=== PATIENT | male | born 1980 ===

== ENCOUNTER 2017-07-24 08:33 | Emergency (ER) | payer OTHER ==
[2017-07-24 08:40] VITALS: BMI 32.1
[2017-07-24] MEDS ORDERED: Sodium Chloride 0.9% 1,000 ML IV SCH (10:00)
--- NOTE | 2017-07-24 10:00 | ED PDOC ---
HPI: Abdomen Time Seen by Provider: 07/24/17 09:18 Chief Complaint (Nursing): Abdominal Pain Chief Complaint (Provider): "i have suprapubic pain" History Per: Patient, Family History/Exam Limitations: no limitations Onset/Duration Of Symptoms: Days Outside of [place] travel?: Yes Other Location:: [facility] on 07/21/2017 Current Symptoms Are (Timing): Still Present Pain Scale Rating Of: 8 Location Of Pain/Discomfort: Suprapubic Quality Of Discomfort: Sharp Associated Symptoms: Fever, Nausea, Urinary Symptoms Exacerbating Factors: Movement Alleviating Factors: Rest Last Bowel Movement: Today Additional Complaint(s): 36 y/o male, w/o significant medication Hx as per pt presents complaining of suprapubic pain x1 day. Pt reports pain started last night gradually. Pain is located suprapubically, 8/10, constant, nonradiating, alleviated with upright position and exacerbated with movement, straining, and urination. Pain is associated with feeling febrile, nausea, dysuria, and dizziness. Several episodes of diarrhea yesterday. Normal BM today. Decreased PO fluid intake 2/2 to dysuria. No recent change in diet. Recently returned from business trip in [facility]. No sick contacts, 1st episode of such pain. Denies sexual behavior/ partner changes. Denies vomiting, melena, hematochezia, hematuria, pyuria, back pain. Past Medical History Reviewed: Historical Data, Vital Signs Vital Signs: Last Vital Signs Temp 98 F 07/24/17 08:39 Pulse 76 07/24/17 12:03 Resp 16 07/24/17 12:03 BP 109/66 07/24/17 12:03 Pulse Ox 98 07/24/17 14:23 - Medical History PMH: No Chronic Diseases Denies: Chronic Kidney Disease - Family History Family History: States: Unknown Family Hx - Immunization History Hx Tetanus Toxoid Vaccination: No Hx Influenza Vaccination: No Hx Pneumococcal Vaccination: No - Home Medications Home Medications: Ambulatory Orders Medication Instructions Recorded Ciprofloxacin 750 mg PO BID 10 Days ml 07/24/17 Metronidazole [Flagyl] 500 mg PO Q6H 10 Days tablet 07/24/17 - Allergies Allergies/Adverse Reactions: Allergies Allergy/AdvReac Type Severity Reaction Status Date / Time No Known Allergies Allergy Verified 07/24/17 09:50 Review of Systems ROS Statement: Except As Marked, All Systems Reviewed And Found Negative Physical Exam - Reviewed Nursing Documentation Reviewed: Yes Vital Signs Reviewed: Yes - Physical Exam Appears: Positive for: Non-toxic, No Acute Distress Head Exam: Positive for: ATRAUMATIC Skin: Positive for: Normal Color, Warm, Dry Eye Exam: Positive for: EOMI, PERRL. Negative for: Conjunctival injection, Scleral icterus Cardiovascular/Chest: Positive for: Regular Rate, Rhythm. Negative for: Murmur Respiratory: Positive for: Normal Breath Sounds. Negative for: Rales, Rhonchi, Wheezing Pulses-Radial (L): 2+ Pulses-Radial (R): 2+ Gastrointestinal/Abdominal: Positive for: Bowel Sounds (normal ), Soft, Tenderness (suprapubic tenderness ), Guarding (voluntary ). Negative for: Mass , Distended, Rebound Back: Negative for: L CVA Tenderness, R CVA Tenderness Lymphatic: Negative for: Adenopathy Neurologic/Psych: Positive for: Alert, slab stripper II-XII, Oriented. Negative for: Motor/Sensory Deficits - Laboratory Results Result Diagrams: 07/24/17 10:07 07/24/17 10:07 - ECG O2 Sat by Pulse Oximetry: 98 - Progress ED Course And Treament: suspected UTI CBC CMP UA GC/CH 1 L NS 15mg Toradol IV re-evaluate Disposition - Clinical Impression Clinical Impression: Diverticulitis - Patient ED Disposition Is Patient to be Admitted: No - Disposition Referrals: Thomas Lott MD [Staff Provider] - Disposition: Routine/Home Disposition Time: 14:05 Condition: STABLE Additional Instructions: take medications as prescribed increase fiber intake drink lots of fluids follow up with a primary medical doctor in 2-3 days Prescriptions: Ciprofloxacin 750 mg PO BID 10 Days ml Metronidazole [Flagyl] 500 mg PO Q6H 10 Days tablet Instructions: Diverticulitis (DC) Forms: [employer] (Czech)
[2017-07-24 10:12] LABS: HEMOGLOBIN 15.4 g/dL (12.0-18.0); MEAN CELL VOLUME 91.4 fl (80.0-94.0); MEAN CORPUSCULAR HEMOGLOBIN 31.2 pg (27.0-31.0); MEAN CORPUSCULAR HGB CONC 34.1 g/dL (33.0-37.0); RBC 4.94 Mil/uL (4.40-5.90); RED CELL DISTRIBUTION WIDTH 13.2 % (11.5-14.5); WHITE BLOOD COUNT 12.4 K/uL (4.8-10.8)
[2017-07-24 10:33] LABS: ALB/GLOB RATIO 1.3 (1.0-2.1); ALBUMIN 4.3 g/dL (3.5-5.0); ALT/SGPT 48 U/L (21-72); AST/SGOT 21 U/L (17-59); BLOOD UREA NITROGEN 9 mg/dl (9-20); CALCIUM 9.4 mg/dL (8.4-10.2); GFR AFRICAN-AMERICAN > 60; GFR NON-AFRICAN AMERICAN > 60
[2017-07-24 11:44] LABS: SQUAMOUS EPITHIAL < 1 /hpf (0-5); URINE BACTERIA RARE (<OCC); URINE BILIRUBIN NEGATIVE (NEGATIVE); URINE BLOOD NEGATIVE (NEGATIVE); URINE CLARITY SLIGHTY-CLOUDY (Clear); URINE COLOR YELLOW (YELLOW); URINE GLUCOSE (UA) NEG (Normal); URINE LEUKOCYTE ESTERASE NEG Leu/uL (Negative); URINE NITRATE NEGATIVE (NEGATIVE); URINE PROTEIN NEGATIVE (NEGATIVE); URINE UROBILINOGEN 0.2-1.0 mg/dL (0.2-1.0)
[2017-07-24 12:04] VITALS: PULSE 76; RESP 16
[2017-07-24 12:08] VITALS: BP 109/66; TEMP 98
--- NOTE | 2017-07-24 14:01 | CT ---
PROCEDURE: CT Abdomen and Pelvis without intravenous contrast HISTORY: abdominal pain COMPARISON: None. TECHNIQUE: Helical CT of the abdomen and pelvis was performed without oral or intravenous contrast as per referring physician request. Contrast Dose: None Radiation dose: Total exam DLP = 1123.47 mGy-cm. This CT exam was performed using one or more of the following dose reduction techniques: Automated exposure control, adjustment of the mA and/or kV according to patient size, and/or use of iterative reconstruction technique. FINDINGS: LOWER THORAX: Unremarkable. LIVER: Diffuse lucencies suggests relatively prominent diffuse fatty infiltration. Small lucency seen the left lobe anteriorly measuring 1.1 cm and 8 Hounsfield units. Further, there is an additional lucency was well circumscribed in the right lobe near the dome laterally, measuring 3.3 x 2.7 cm with a density measurement of 2 Hounsfield units. Both represent cysts. GALLBLADDER AND BILE DUCTS: Unremarkable. PANCREAS: Unremarkable. No gross lesion or ductal dilatation. SPLEEN: Unremarkable. ADRENALS: Unremarkable. No mass. KIDNEYS AND URETERS: No radiodense urolithiasis, perinephric fluid collection or obstructive uropathy is appreciate bilaterally. The bilateral ureters appear normal caliber overall. VASCULATURE: Unremarkable. No aortic aneurysm. BOWEL: Stomach is only mildly distended with retained fluid and air. There is no bowel obstruction appreciated. Overall spirits of the small bowel is unremarkable. [id number] fecal loading seen throughout the colon with sigmoid diverticular changes appreciated. Mural thickening seen in the short segment of the mid sigmoid colon with local pericolic reaction but no definite free intrarenal gas or fluid collection. Sympathetic reactive changes are suggested at the upper left rectosigmoid junction region. Sigmoid diverticulitis is the primary etiology with differential diagnosis of other infectious or inflammatory causes neoplasm or ischemia. APPENDIX: Unremarkable. Normal appendix. PERITONEUM: Reactive changes noted above. No free fluid. No free air. LYMPH NODES: Unremarkable. No enlarged lymph nodes. BLADDER: Unremarkable. REPRODUCTIVE: Unremarkable. BONES: No acute fracture. OTHER FINDINGS: None. IMPRESSION: Findings most compatible with acute or subacute diverticulitis affecting the mid sigmoid segment. Differential diagnosis is as discussed above. No definite free intraperitoneal gas is identified, abscess or other significant fluid collection. No bowel obstruction. Clinical follow-up is recommended including potential lower endoscopy. Hepatic steatosis. Two cysts are identified in the liver as discussed above. Lack of contrast agents limits full evaluation.
[2017-07-24 14:07] VITALS: O2SAT 98
== END 2017-07-24 14:54 | disposition home or self-care (01) ==
LOC: H.ER 08:33
DX: K57.92 Diverticulitis of intestine, part unspecified, without perforation or abscess without bleeding (principal)
CPT/HCPCS: 74176; 80053; 81003; 85027; 87491; 87591; 96360; 96372; 99284; J1885; J7040